=== PATIENT | male | born 1925 | race Caucasian/White ===

== ENCOUNTER 2016-08-25 16:01 | Emergency (ER) | payer MEDICARE ==
[2016-08-25] MEDS ORDERED: Diph,Pert(Acell),Tet Vac 0.5 ML SYR IM ONE (16:22)
--- NOTE | 2016-08-25 16:23 | Emergency Department Record ---
History of Present Illness - General Chief Complaint: Laceration(s) Stated Complaint: leg laceration Time Seen by Provider: 08/25/16 16:21 Source: Patient Mode of Arrival: Ambulatory Limitations: No limitations - History of Present Illness Initial Commments: 89 yo male presents to ED for evaluation of a laceration to the right lower extremity. Patient reports that he was working with stained glass when a piece dropped resulting in laceration and injury. Patient denies other injury and reports that his tetanus is not UTD. Patient reports that he is on Xarelto for atrial fibrillation. Onset/Timin -: Minutes(s) Extremity Location: Right: Lower leg Place: Home Context: Accidental, Sharp object use Associated Symptoms: None Treatments Prior to Arrival: Bandage - [place] Coma Scale Eye Response: (4) Open spontaneously Motor Response: (6) Obeys commands Verbal Response: (5) Oriented [place] Total: 15 - Related Data Patient Tetanus UTD (within 5 yrs): No Home Medications Medication Instructions Recorded Confirmed Last Taken Acetaminophen [Tylenol 325Mg] 650 mg PO Q6H 11/23/15 08/25/16 1 Day Ago ~08/24/16 Aspirin [Ecotrin] 81 mg PO DAILY 11/23/15 08/25/16 1 Day Ago ~08/24/16 Isosorbide Mononitrate [Imdur] 60 mg PO DAILY 11/23/15 08/25/16 1 Day Ago ~08/24/16 Levothyroxine Sodium [Synthroid] 88 mcg PO DAILY 11/23/15 08/25/16 1 Day Ago ~08/24/16 Nitroglycerin [Nitrostat] 0.4 mg SL ASDIR 11/23/15 08/25/16 1 Day Ago ~08/24/16 Omeprazole 20 mg PO DAILY 11/23/15 08/25/16 1 Day Ago ~08/24/16 Trazodone HCl [Desyrel] 50 mg PO QHS 11/23/15 08/25/16 1 Day Ago ~08/24/16 Apixaban [Eliquis] 5 mg PO BID 08/25/16 08/25/16 1 Day Ago ~08/24/16 Previous Rx's Medication Instructions Recorded Docusate Sodium [Colace] 100 mg PO BID #60 cap 11/27/15 Ferrous Sulfate [Iron] 325 mg PO BID #60 mg 11/27/15 Allergies Allergy/AdvReac Type Severity Reaction Status Date / Time No Known Drug Allergies Allergy Verified 08/25/16 16:11 Travel Screening - Travel/Exposure Within Last 30 Days Have you traveled within the last 30 days?: No - Travel/Exposure Within Last Year Have you traveled outside the [place] in the last year?: No - Additonal Travel Details Have you been exposed to anyone with a communicable illness?: No - Travel Symptoms Symptom Screening: None Review of Systems Constitutional: Denies: Chills, Fever, Malaise, Night sweats Eyes: Denies: Eye discharge, Eye pain ENT: Denies: Congestion, Ear pain, Epistaxis Respiratory: Denies: Cough, Dyspnea Cardiovascular: Denies: Chest pain, Dyspnea on exertion Endocrine: Denies: Fatigue, Heat or cold intolerance Gastrointestinal: Denies: Abdominal pain, Nausea, Vomiting Genitourinary: Denies: Incontinence, Retention Musculoskeletal: Denies: Arthralgia, Back pain, Gout, Joint swelling Skin: Denies: Bruising, Change in color Neurological: Denies: Abnormal gait, Confusion, Headache, Seizure Psychiatric: Denies: Anxiety Hematological/Lymphatic: Reports: Easy bleeding, Easy bruising. Denies: Anemia , Blood Clots Past Medical History - SOCIAL HISTORY Smoking Status: Former smoker Alcohol Use: None Drug Use: None - RESPIRATORY Hx Respiratory Disorders: No - CARDIOVASCULAR Hx Cardio Disorders: Yes Hx Abnormal EKG: Yes Hx Irregular Heartbeat: Yes (afib) Comment:: CAD, Artery stenosis - NEURO Hx Neuro Disorders: No - GI Hx GI Disorders: Yes Hx Reflux: Yes - Hx Genitourinary Disorders: Yes Hx Prostate Problems: Yes Comment:: frequency - ENDOCRINE Hx Endocrine Disorders: Yes Hx Thyroid Disease: Yes (hypo) - MUSCULOSKELETAL Hx Musculoskeletal Disorders: No - PSYCH Hx Psych Problems: No - HEMATOLOGY/ONCOLOGY Hx Hematology/Oncology Disorders: No Family Medical History Any Significant Family History?: Yes Physical Exam - General General Appearance: Alert, Oriented x3, Cooperative, No acute distress Limitations: No limitations - Head Head exam: Atraumatic, Normocephalic, Normal inspection Head exam detail: negative: Abrasion, Contusion, Meyer's sign, General tenderness, Hematoma, Laceration - Eye Eye exam: Normal appearance. negative: Conjunctival injection, Periorbital swelling, Periorbital tenderness, Scleral icterus - ENT Ear exam: negative: Auricular hematoma, Auricular trauma Nasal Exam: negative: Active bleeding, Discharge, Dried blood, Foreign body Mouth exam: negative: Drooling, Laceration, Muffled voice, Tongue elevation - Neck Neck exam: Normal inspection. negative: Meningismus, Tenderness - Respiratory Respiratory exam: Normal lung sounds bilaterally. negative: Rales, Respiratory distress, Rhonchi, Stridor - Cardiovascular Cardiovascular Exam: Regular rate, Normal rhythm, Normal heart sounds - GI/Abdominal GI/Abdominal exam: Soft. negative: Rebound, Rigid, Tenderness - Rectal Rectal exam: Deferred - exam: Deferred - Extremities Extremities exam: Other (1.0 cm laceration to the RLE, mid-shaft region of the lower extremity. No FB on examination.). negative: Calf tenderness, Pedal edema, Tenderness - Back Back exam: Denies: CVA tenderness (R), CVA tenderness (L) - Neurological Neurological exam: Alert, Normal gait, Oriented X3 - Psychiatric Psychiatric exam: Normal affect, Normal mood - Skin Skin exam: Normal color. negative: Abrasion Type of lesion: negative: abrasion Course Vital Signs 08/25/16 16:05 Temperature 98.3 F Pulse Rate 85 Respiratory 16 Rate Blood Pressure 139/75 Pulse Ox 97 - Reevaluation(s) Reevaluation #1: 08/25/16 16:30 Procedure Note: Wound was anesthetized with 1.5 mL 1% Lidocaine with epi with good anesthesia. No FBs identified on examination, patient denies that the piece of glass broke and declined x-ray for confirmation of no FBs. 1.5 cm laceration was closed with (2) 4-0 prolene sutures placed in interrupted fashion with good cosmesis and hemostasis. NO complications and the patient tolerated the procedure well. Patient was counseled to return for any increased pain, erythema, drainage, or wound swelling as these may be signs of infection. Patient appears stable for discharge at this time. Disposition Disposition: Discharge Clinical Impression: Laceration of lower leg Qualifiers: Encounter type: initial encounter Laterality: right Qualified Code(s): S81.811A - Laceration without foreign body, right lower leg, initial encounter Disposition: Home, Self-Care Condition: (2) Stable Instructions: Laceration (ED) Additional Instructions: Return to ED if your symptoms worsen or if you have any concerns. Sutures out in 10-14 days. Follow-up with your family doctor in 1 week as directed. Forms: Patient Portal Access Time of Disposition: 16:22
== END 2016-08-25 16:37 | disposition home or self-care (01) ==
LOC: ER 16:01
DX: S81.811A Laceration without foreign body, right lower leg, initial encounter (principal); W25.XXXA Contact with sharp glass, initial encounter; I48.91 Unspecified atrial fibrillation; I25.10 Atherosclerotic heart disease of native coronary artery without angina pectoris; Z79.01 Long term (current) use of anticoagulants
CPT/HCPCS: 12001; 90715; 96372; 99283